=== PATIENT | female | born 1990 | race Two or more races ===

== ENCOUNTER 2018-10-19 20:51 | Emergency (ER) | payer BC ==
[2018-10-19] MEDS ORDERED: predniSONE TAB* 20 MG PO ONE (21:32)
--- NOTE | 2018-10-19 21:37 | UC ---
Respiratory Complaint HPI - HPI Summary HPI Summary: Patient is a 28-year-old female, history of asthma, hear coughing. Patient's had coughing over the past 4 day. Patient's coughing is worse at night. Patient has associated dry throat. Patient has no fever, chills, nasal congestion, ear pain, vomiting, diarrhea. Patient has basilar alveolar inhaler with little relief. Medications reviewed - History of Current Complaint Stated Complaint: COUGH x 5 DAYS Time Seen by Provider: 10/19/18 21:25 Hx Obtained From: Patient Onset/Duration: Gradual Onset PMH/Surg Hx/FS Hx/Imm Hx Respiratory History: Asthma - Surgical History Surgical History: Yes - Family History Known Family History: Positive: Non-Contributory - Social History Alcohol Use: Rare Substance Use Type: None Smoking Status (MU): Never Smoked Tobacco Review of Systems All Other Systems Reviewed And Are Negative: Yes Constitutional: Negative: Fever, Chills Skin: Negative: Rash Respiratory: Positive: Shortness Of Breath, Cough Cardiovascular: Negative: Palpitations, Chest Pain Gastrointestinal: Negative: Abdominal Pain, Vomiting, Diarrhea Physical Exam - Summary Physical Exam Summary: Vital Signs Reviewed: Yes A+Ox3, no distress Eyes: Conjunctiva Clear ENT: Hearing grossly normal neck: supple Respiratory: Speaking in full senses. Good air entry bilaterally. No wheezing or rhonchi. Cardiovascular: skin color reflect adequate perfusion Musculoskeletal Exam: SEGOVIA x 4 without difficulty Neurological: Positive: Alert, ambulatory without difficulty Triage Information Reviewed: Yes Respiratory Course/Dx - Course Course Of Treatment: Patient is here with coughing secondary to a URI exacerbated by asthma. Patient has no wheezing upon arrival does not eat because her treatment here. Patient is given a dose of steroids here and started on a 5 day prednisone course. Patient is also discharged with Tessalon pearls. Patient does not have symptoms of pneumonia and does not need an x-ray. - Differential Dx/Diagnosis Differential Diagnosis/HQI/PQRI: Asthma, Bronchitis, Influenza, Laryngitis, Other - viral URI Provider Diagnosis: Viral URI with cough, Asthma Discharge - Sign-Out/Discharge Documenting (check all that apply): Patient Departure All imaging exams completed and their final reports reviewed: No Studies - Discharge Plan Condition: Stable Disposition: HOME Prescriptions: Benzonatate CAP* [Tessalon 100 MG CAP*] 100 mg PO TID PRN #20 cap PRN Reason: cough predniSONE [Prednisone 20 MG TAB] 20 mg PO QAM 4 Days #8 tablet Patient Education Materials: Asthma (ED), Viral Syndrome (ED) Referrals: No Primary Care Phys,NOPCP [Primary Care Provider] - Additional Instructions: Please take her medication as prescribed Please use her albuterol inhaler when needed Please drink tea with honey Please return if he has fever, worsening cough, trouble breathing - Billing Disposition and Condition Condition: STABLE Disposition: Home
[2018-10-19 21:51] VITALS: BP 165/116
== END 2018-10-19 22:04 | disposition home or self-care (01) ==
LOC: UCCORT 20:51
DX: J06.9 Acute upper respiratory infection, unspecified (principal); R05 Cough; J45.909 Unspecified asthma, uncomplicated
CPT/HCPCS: 99202; G0463; J7512